=== PATIENT | male | born 1975 | race Caucasian/White ===

== ENCOUNTER 2024-09-27 05:12 | Emergency (ER) | payer BC, OTHER ==
[~2024-09-27] VITALS: Ht 172.7 cm; Wt 81.8 kg
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
[2024-09-27] MEDS ORDERED: NAP500T PO (07:22)
[2024-09-27] MEDS ORDERED: METH-1181 PO (07:22)
[2024-09-27] MEDS ORDERED: LIDO5DIS21 TOP (07:22)
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
[2024-09-27] MEDS: HYDROcodone-ACET 10/325MG TAB PO ONE (07:33)
[2024-09-27] MEDS: LIDOCAINE W/ EPINEPHRINE 1% 20ML VIAL ID ONE (07:55)
[2024-09-27] MEDS: TETANUS-DIPTH-ACEL PERTUSSIS 0.5ML SYR Tdap IM ONE (07:55)
[2024-09-27 08:30] VITALS: BP 134/78; PULSE 78; RESP 16; TEMP 98.7; O2SAT 97
== END 2024-09-27 08:32 | disposition home or self-care (01) ==
LOC: ER 05:12 → EDBD 05:12 → ER 08:32
DX: S01.01XA Laceration without foreign body of scalp, initial encounter (principal); V89.2XXA Person injured in unspecified motor-vehicle accident, traffic, initial encounter; Y93.89 Activity, other specified; Y92.410 Unspecified street and highway as the place of occurrence of the external cause; Y99.8 Other external cause status
CPT/HCPCS: 12001; 70450; 72125; 73030; 90471; 90715